=== PATIENT | male | born 1945 | race Caucasian/White ===

== ENCOUNTER → 2016-09-14 | Outpatient (CLI) | payer OTHER ==
[~2016-09-14] VITALS: Ht 175.3 cm; Wt 89.3 kg
[~2016-09-14] MED LIST: ALBU0.08 INH; ALBUAER2 INH; AMLO-110 PO; ASPI81TA28 PO; ATOR80TA PO; CIPROFLOXACIN / D5W 400 MG IV SCH; CLOP1TAB5 PO; FLM4 PO; FLUT1INH INH; GLCSR500 PO; GLIM4TAB2 PO; ISOS60TA25 PO; LACTATED RINGER'S 1000ML IV SCH; METO50TA16 PO; MULTTAB58 PO; NITR0.4S UT; NVLG SC; PANT40TA PO
[2016-09-14 09:16] VITALS: Ht 175.3 cm; Wt 89.3 kg
--- NOTE | 2016-09-14 10:07 | PAT Medication Instructions ---
Service Date Sep 14, 2016. Current Home Medication List Albuterol Soln (Proventil 0.083% 2.5MG/3ML), 2.5 MG INH Q4HR PRN Amlodipine (Norvasc), 5 MG PO QAM Aspirin (Aspirin Ec), 81 MG PO QAM Atorvastatin Calcium (Lipitor), 80 MG PO QAM Clopidogrel Bisulfate (Plavix), 75 MG PO QAM Fluticasone Furoate-Vilanterol (Breo Ellipta), 1 PUFF INH QAM Glimepiride (Glimepiride), 4 MG PO HS Insulin Aspart (Novolog), 10 UNITS SC BID Isosorbide Mononitrate Ext Rel (Imdur Ext Rel), 120 MG PO QAM Metformin Hcl Ext Rel (Glucophage Ext Rel *), 1,000 MG PO BID Metoprolol Tartrate (Lopressor) (Lopressor), 50 MG PO QAM Multiple Vitamin (Multivitamin), 1 TAB PO QAM Nitroglycerin (Nitrostat), 0.4 MG UT PRN Pantoprazole Sodium (Protonix), 40 MG PO QAM Tamsulosin HCl (Tamsulosin HCl), 0.4 MG PO HS Medication Instructions For Your Scheduled Surgery Aspirin (Aspirin Ec), 81 MG PO QAM (surgeon will call you with instructions) Clopidogrel Bisulfate (Plavix), 75 MG PO QAM (hold 5-7 days prior to surgery per cardio) Nitroglycerin (Nitrostat), 0.4 MG UT PRN (if needed) - Hold the following medications 48 hours prior to surgery: Metformin Hcl Ext Rel (Glucophage Ext Rel *), 1,000 MG PO BID - Hold the following medications the morning of surgery: Multiple Vitamin (Multivitamin), 1 TAB PO QAM Insulin Aspart (Novolog), 10 UNITS SC BID - Take the following medications the morning of surgery with a sip of water: Pantoprazole Sodium (Protonix), 40 MG PO QAM Metoprolol Tartrate (Lopressor) (Lopressor), 50 MG PO QAM Isosorbide Mononitrate Ext Rel (Imdur Ext Rel), 120 MG PO QAM Fluticasone Furoate-Vilanterol (Breo Ellipta), 1 PUFF INH QAM Atorvastatin Calcium (Lipitor), 80 MG PO QAM Albuterol Inhaler (bring with you to hospital on day of surgery) Amlodipine (Norvasc), 5 MG PO QAM - Take the following medications as scheduled the night before surgery: Tamsulosin HCl (Tamsulosin HCl), 0.4 MG PO HS Insulin Aspart (Novolog), 10 UNITS SC BID Glimepiride (Glimepiride), 4 MG PO HS Albuterol Inhaler If you have any questions please call us at [phone] or [phone] ( Kimmy) or [phone]
--- NOTE | 2016-09-14 10:45 | DIAGNOSTIC IMAGING REPORT ---
CHEST PREADMISSION(PA/LAT) CLINICAL HISTORY: Preoperative evaluation. COMPARISON STUDY: Chest CT June 13, 2015. FINDINGS: Median sternotomy wires and clips from bypass grafting are noted. There are cholecystectomy clips. Mild elevation/eventration of the right hemidiaphragm is unchanged. Cardiac size is normal. There is no evidence of pulmonary edema. Blunting of right costophrenic angle is unchanged. This is likely chronic. The appearance of the chest is unchanged. IMPRESSION: No acute cardiopulmonary findings. Electronically signed by: Ezequiel Barnes M.D. 09/14/2016 10:43 AM Dictated Date/Time: 09/14/2016 10:42 AM
[2016-09-14 11:11] LABS: BASO % 0.4 %; BASO ABS # 0.03 K/uL (0-0.2); COMPLETE YES; EOS % 2.5 %; HEMATOCRIT 39.2 % (42-52); IG% 0.1 %; LYMPH % 31.2 %; MEAN CELL VOLUME 90.1 fL (80-100); MEAN CORPUSCULAR HEMOGLOBIN 31.3 pg (25-34); MEAN CORPUSCULAR HGB CONC 34.7 g/dl (32-36); MEAN PLATELET VOLUME 11.9 fL (7.4-10.4); MONO % 8.3 %; NEUT % 57.5 %; PLATELET COUNT 179 K/uL (130-400); RED BLOOD COUNT 4.35 M/uL (4.7-6.1); WHITE BLOOD COUNT 7.69 K/uL (4.8-10.8)
[2016-09-14 11:12] LABS: URINE APPEARANCE CLEAR (CLEAR); URINE BILIRUBIN NEG (NEG); URINE COLOR DK YELLOW; URINE NITRITE NEG (NEG); URINE SPECIFIC GRAVITY 1.019 (1.000-1.030); UROBILINOGEN NEG (NEG)
[2016-09-14 11:18] LABS: MANUAL MICROSCOPIC REQUIRED? NO; REVIEW REQ? NO
[2016-09-14 11:38] LABS: BUN/CREATININE RATIO 12.7 (10-20); CREATININE 0.88 mg/dl (0.60-1.40); POTASSIUM 4.6 mmol/L (3.5-5.1)
== END | disposition home or self-care (01) ==
LOC: C.LAB 08:00 → EDSTATUS 09-28 08:30
PROVIDERS: ATTEND Urology
DX: Z01.818 Encounter for other preprocedural examination (principal)